=== PATIENT | male | born 1995 | race Caucasian/White ===

== ENCOUNTER → 2024-01-18 | Day surgery (SDC) | payer OTHER ==
[~2024-01-18] MED LIST: DEXMEDETOMIDINE HCL 200 MCG/2 ML VIAL ONE; LIDOCAINE HCL 2% LOCAL INJ 5 ML SDV VIAL INJ ONE; LOSARTAN POTASS25 MG PO; METOCLOPRAMIDE HCL 10 MG/2ML VIAL ONE; PROPOFOL IV EMULSION 10 MG/ML 20 ML VIAL ONE; PROTONIX40 MG PO
[2024-01-18] MEDS: LACTATED RINGER'S 1,000 ML ONE (13:25)
[2024-01-18 16:10] VITALS: BP 121/74; PULSE 77; RESP 17; O2SAT 97
[2024-01-23 07:19] LABS: ENDOMYSIAL ANTIBODIES, IGA Negative (Negative)
[2024-01-23 08:45] LABS: IMMUNOGLOBULIN A 142 mg/dL (90-386); TISSUE TRANSGLUTAMINASE IGA AB <2 U/mL (0-3)
== END | disposition home or self-care (01) ==
LOC: OR 13:02
PROVIDERS: ATTEND Internal Medicine Gastroenterology
DX: K29.70 Gastritis, unspecified, without bleeding (principal); K31.7 Polyp of stomach and duodenum; K20.90 Esophagitis, unspecified without bleeding; K21.9 Gastro-esophageal reflux disease without esophagitis; K58.9 Irritable bowel syndrome, unspecified; R19.7 Diarrhea, unspecified; R15.2 Fecal urgency; R19.5 Other fecal abnormalities; G47.33 Obstructive sleep apnea (adult) (pediatric); I10 Essential (primary) hypertension; E78.5 Hyperlipidemia, unspecified; M54.9 Dorsalgia, unspecified; F41.9 Anxiety disorder, unspecified; Z79.899 Other long term (current) drug therapy; Z86.19 Personal history of other infectious and parasitic diseases; Z80.0 Family history of malignant neoplasm of digestive organs
CPT/HCPCS: 43239; 43251; 82784; 83516; 86256; 93005; J2001; J2470; J2704; J2765; J7121

== ENCOUNTER → 2024-01-30 | Outpatient (REF) | payer OTHER ==
[~2024-01-30] MED LIST changes: -DEXMEDETOMIDINE HCL 200 MCG/2 ML VIAL ONE; -LIDOCAINE HCL 2% LOCAL INJ 5 ML SDV VIAL INJ ONE; -METOCLOPRAMIDE HCL 10 MG/2ML VIAL ONE; -PROPOFOL IV EMULSION 10 MG/ML 20 ML VIAL ONE
== END ==
LOC: US 09:00
PROVIDERS: ATTEND Internal Medicine Gastroenterology
DX: R10.84 Generalized abdominal pain (principal)
CPT/HCPCS: 76700

== ENCOUNTER → 2024-02-15 | Outpatient (REF) | payer OTHER ==
[~2024-02-15] MED LIST changes: +IOPAMIDOL 370 MG/ML 100 ML INFUS..BTL INJ ONE
== END ==
LOC: CT 12:49
PROVIDERS: ATTEND Nurse Practitioner
DX: R10.10 Upper abdominal pain, unspecified (principal); K82.8 Other specified diseases of gallbladder; I10 Essential (primary) hypertension
CPT/HCPCS: 74160; Q9967